=== PATIENT | female | born 1985 | race Caucasian/White ===

== ENCOUNTER 2022-02-01 19:45 | Emergency (ER) | payer OTHER ==
[2022-02-01] MEDS ORDERED: AMOX TR-K CLV1 EAC4 PO (20:16)
== END 2022-02-01 20:54 | disposition home or self-care (01) ==
LOC: FER 19:45
DX: S91.051A Open bite, right ankle, initial encounter (principal); L03.115 Cellulitis of right lower limb; F17.210 Nicotine dependence, cigarettes, uncomplicated; Z28.310 Unvaccinated for COVID-19; W55.01XA Bitten by cat, initial encounter; Y93.89 Activity, other specified; Y92.009 Unspecified place in unspecified non-institutional (private) residence as the place of occurrence of the external cause
CPT/HCPCS: 99283; J1100